=== PATIENT | female | born 1960 | race Caucasian/White ===

== ENCOUNTER 2018-04-24 13:45 | Outpatient (CLI) | payer BC | END 2018-04-24 13:46 | disposition home or self-care (01) | LOC: BICMAMMO 13:45 | PROVIDERS: ATTEND Internal Medicine | DX: Z12.31 Encounter for screening mammogram for malignant neoplasm of breast (principal) | CPT/HCPCS: 77063; 77067 ==

== ENCOUNTER 2020-05-22 20:55 | Inpatient (IN) | payer BC, OTHER ==
[2020-05-22 21:20] LABS: #Basophils 0.1 thou/uL (0.0-0.2); #Eosinphils 0.1 thou/uL (0.0-0.7); #Monocytes 0.4 thou/uL (0.11-0.59); #Neutrophils 5.8 thou/uL (1.40-6.50); %Basophils 0.7 % (0.0-1.0); %Eosinophils 0.8 % (0.0-10.0); %Lymphocytes 24.2 % (21.0-51.0); %Monocytes 5.2 % (0.0-10.0); %Neutrophils 69.1 % (42.0-75.0); Hemoglobin 14.2 g/dL (12.0-16.0); Mean Corpuscular HGB CONC 34.6 g/dL (32.0-36.0); Mean Corpuscular Hemoglobin 31.2 pg (27.0-31.0); Mean Corpuscular Volume 90.2 fL (78.0-98.0); Platelet Count 154 thou/uL (130-400); Red Blood Cell (RBC) Count 4.55 mill/uL (4.20-5.40); White Blood Cell (WBC) Count 8.4 thou/uL (4.8-10.8)
--- NOTE | 2020-05-22 21:33 | RAD ---
PORTABLE CHEST: 05/22/20 HISTORY: Shortness of breath. No comparison. FINDINGS: There are hazy bilateral infiltrates. No effusion. Heart size is normal. Vascular markings are promi nent. IMPRESSION: Hazy bilateral infiltrates. COVID pneumonia should be excluded. POS: [facility]
[2020-05-22 21:40] LABS: ALT (SGPT) 16 U/L (8-55); AST (SGOT) 31 U/L (5-34); Albumin 3.1 g/dL (3.5-5.0); Alkaline Phosphatase 116 U/L (40-110); Anion Gap 14 mmol/L (10-20); BUN (Urea Nitrogen) 10 mg/dL (9.8-20.1); Bilirubin, Total 2.3 mg/dL (0.2-1.2); Calc. Creatinine Clearance 0 mL/min (70-130); Calcium 8.6 mg/dL (7.8-10.44); Carbon Dioxide 22 mmol/L (22-29); Chloride 104 mmol/L (98-107); Estimated GFR-MDRD Greater than 90; Globulin 3.8 g/dL (2.4-3.5); Glucose 222 mg/dL (70-105); Potassium 3.8 mmol/L (3.5-5.1); Protein, Total 6.9 g/dL (6.0-8.3); Sodium 136 mmol/L (136-145)
[2020-05-23] MEDS ORDERED: Ondansetron ODT 4 MG TAB SL PRN (00:34)
[2020-05-23] MEDS ORDERED: Acetaminophen 325 MG TAB PO PRN (00:34)
[2020-05-23] MEDS ORDERED: Acetaminophen 650 MG Suppository PR PRN (00:56)
[2020-05-23] MEDS ORDERED: Calcium Carbonate 500 MG ChewTAB PO PRN (00:56)
--- NOTE | 2020-05-23 01:03 | PDOC.HHP ---
Hospitalist HPI - History of Present Illness weakness dyspnea History of Present Illness: Case of an 59y/o female with pmhx of DM who comes to hospital due to weakness and dyspnea. patient refers she was on her usual state of health until tuesday when she started to have symptoms of cough dypsnea, sore throat, anorexia, loss of taste and nausea. she refers she went to a clinic to get tested, results were pending. patient comes today due to worsening of her symptoms especially weakness and dyspnea. at arrival at the ED patient with o2 sat in the low 80s, with a positive results of covid 19 for which hospitalist was called for further evaluation and management. Hospitalist ROS - Review of Systems All other systems reviewed; all pertinent +/- noted in HPI/Subj Hospitalist History - Family History Family History: reports: diabetes mellitus - Social History Smoking Status: Never smoker Alcohol: reports: None Drugs: reports: none - Exam General Appearance: NAD, awake alert Eye: PERRL, anicteric sclera ENT: normocephalic atraumatic, no oropharyngeal lesions Neck: supple, symmetric, no JVD Heart: RRR, no murmur, no gallops, no rubs Respiratory: CTAB, no wheezes, no rales, no ronchi, tachypneic Gastrointestinal: soft, non-tender, non-distended Extremities: no cyanosis, no clubbing, no edema Skin: normal turgor, no lesions, no rashes Neurological: cranial nerve grossly intact, normal sensation to touch, no weakness Musculoskeletal: normal tone, normal strength, no muscle wasting Psychiatric: normal affect, normal behavior, A&O x 3 Hospitalist Results - Labs Result Diagrams: 05/22/20 21:10 05/22/20 21:10 Lab results: WBC 8.4 thou/uL (4.8-10.8) 05/22/20 21:10 Hgb 14.2 g/dL (12.0-16.0) 05/22/20 21:10 Hct 41.0 % (36.0-47.0) 05/22/20 21:10 MCV 90.2 fL (78.0-98.0) 05/22/20 21:10 Plt Count 154 thou/uL (130-400) 05/22/20 21:10 Neutrophils % 69.1 % (42.0-75.0) 05/22/20 21:10 Sodium 136 mmol/L (136-145) 05/22/20 21:10 Potassium 3.8 mmol/L (3.5-5.1) 05/22/20 21:10 Chloride 104 mmol/L (98-107) 05/22/20 21:10 Carbon Dioxide 22 mmol/L (22-29) 05/22/20 21:10 BUN 10 mg/dL (9.8-20.1) 05/22/20 21:10 Creatinine 0.61 mg/dL (0.6-1.1) 05/22/20 21:10 Glucose 222 mg/dL (70-105) H 05/22/20 21:10 Lactic Acid 1.3 mmol/L (0.5-2.2) 05/22/20 21:56 Calcium 8.6 mg/dL (7.8-10.44) 05/22/20 21:10 Total Bilirubin 2.3 mg/dL (0.2-1.2) H 05/22/20 21:10 AST 31 U/L (5-34) 05/22/20 21:10 ALT 16 U/L (8-55) 05/22/20 21:10 Alkaline Phosphatase 116 U/L (40-110) H 05/22/20 21:10 Serum Total Protein 6.9 g/dL (6.0-8.3) 05/22/20 21:10 Albumin 3.1 g/dL (3.5-5.0) L 05/22/20 21:10 - Radiology Interpretation Chest x-ray Additional Comment: b/l infiltrates Hospitalist H&P A/P - Problem (1) Pneumonia due to COVID-19 virus Code(s): U07.1 - COVID-19; J12.89 - OTHER VIRAL PNEUMONIA Status: Acute (2) Respiratory failure with hypoxia Code(s): J96.91 - RESPIRATORY FAILURE, UNSPECIFIED WITH HYPOXIA Status: Acute (3) Diabetes Code(s): E11.9 - TYPE 2 DIABETES MELLITUS WITHOUT COMPLICATIONS Status: Acute - Plan Plan: covid pneumonia / respiratory failire hypoxic - positve test - cxr w b/l infiltrates - started on rocephin and azithromycin prophylactically - started on dexamethazone 6mg iv d due to hypoxia - f/u cultures - f/u inflammation markers - o2 supplementation - dvt prophylaxis - LA 1.3 DM - acc and ss - low dose long acting -adjust as necessary
[2020-05-23] MEDS: Sodium Chloride 0.9% 1,000 ML IV SCH ×2 (01:31→21:20)
[2020-05-23] MEDS: Azithromycin 500 MG in Sodium Chloride 0.9% 250 ML 250 ML IVPB SCH (01:31)
[2020-05-23] MEDS: cefTRIAXone\\ROCEPHIN 1 GM in Sodium Chloride 0.9% 100 ML IVPB SCH (01:32)
[2020-05-23] MEDS: Ondansetron PF 4 MG/2 ML Vial IVP PRN ×2 (01:32→10:03)
[2020-05-23] MEDS: Acetaminophen 325 MG TAB PO PRN ×3 (01:33→17:51)
[2020-05-23] MEDS: Guaifenesin DM 100-10/5 ML UDCUP PO PRN (01:33)
[2020-05-23 01:54] VITALS: BMI 32.7
[2020-05-23] MEDS ORDERED: Dextrose 50% Abboject 50 ML SYRINGE SLOW IVP PRN (02:48)
[2020-05-23] MEDS ORDERED: Dextrose 5% in Water 1,000 ML IV PRN (02:48)
[2020-05-23] MEDS: HumaLOG 300 UNITS/3 ML VIAL SC PRN ×4 (05:31→20:40)
[2020-05-23 07:19] LABS: ALT (SGPT) 14 U/L (8-55); AST (SGOT) 25 U/L (5-34); Albumin 2.8 g/dL (3.5-5.0); Alkaline Phosphatase 97 U/L (40-110); Anion Gap 11 mmol/L (10-20); BUN (Urea Nitrogen) 13 mg/dL (9.8-20.1); Bilirubin, Total 1.6 mg/dL (0.2-1.2); CRP (Inflammatory) 18.03 mg/dL (= or < 0.5); Calc. Creatinine Clearance 120 mL/min (70-130); Calcium 8.1 mg/dL (7.8-10.44); Carbon Dioxide 24 mmol/L (22-29); Chloride 105 mmol/L (98-107); Estimated GFR-MDRD Greater than 90; Globulin 3.5 g/dL (2.4-3.5); Glucose 218 mg/dL (70-105); Potassium 3.8 mmol/L (3.5-5.1); Protein, Total 6.3 g/dL (6.0-8.3); Sodium 136 mmol/L (136-145)
[2020-05-23 07:44] LABS: Band 10 % (5-11); Eosinophils 1 % (0-10); Helmet Cells SLIGHT = 2-5 cells (100X) (0-1/hpf); Hemoglobin 12.3 g/dL (12.0-16.0); Lymphocytes 18 % (21-51); MDiff Complete? YES; Mean Corpuscular HGB CONC 33.8 g/dL (32.0-36.0); Mean Corpuscular Hemoglobin 30.1 pg (27.0-31.0); Mean Platelet Volume 11.4 fL (7.4-10.4); Monocytes 4 % (0-10); Neutrophil 67 % (42-75); Platelet Count 166 thou/uL (130-400); Platelet Morphology Comment Appears Adequate; RBC Distribution Width 12.2 % (11.5-14.5); RBC Morphology Normal; Red Blood Cell (RBC) Count 4.07 mill/uL (4.20-5.40); White Blood Cell (WBC) Count 8.4 thou/uL (4.8-10.8)
[2020-05-23] MEDS: Enoxaparin Sodium 40 MG/0.4 ML SYRINGE SC SCH (08:09)
[2020-05-23] MEDS: Dexamethasone 10 MG/ML VIAL SLOW IVP SCH (08:09)
[2020-05-23] MEDS: Insulin Glargine 10 UNITS in Pre-Filled Syringe 1 EACH SC SCH (20:31)
[2020-05-24] MEDS: Azithromycin 500 MG in Sodium Chloride 0.9% 250 ML 250 ML IVPB SCH (01:09)
[2020-05-24] MEDS: HYDROcodone/Acetaminophen 5/325 mg Tablet PO PRN (01:09)
[2020-05-24] MEDS: cefTRIAXone\\ROCEPHIN 1 GM in Sodium Chloride 0.9% 100 ML IVPB SCH (01:09)
[2020-05-24] MEDS: Ondansetron PF 4 MG/2 ML Vial IVP PRN ×2 (04:22→08:31)
[2020-05-24] MEDS: HumaLOG 300 UNITS/3 ML VIAL SC PRN ×3 (05:40→17:12)
[2020-05-24] MEDS: Guaifenesin DM 100-10/5 ML UDCUP PO PRN (08:27)
[2020-05-24] MEDS: Dexamethasone 10 MG/ML VIAL SLOW IVP SCH (08:28)
[2020-05-24] MEDS: Enoxaparin Sodium 40 MG/0.4 ML SYRINGE SC SCH ×2 (08:28→21:04)
[2020-05-24] MEDS: Acetaminophen 325 MG TAB PO PRN (09:02)
[2020-05-24 11:13] LABS: Actual Bicarbonate (HCO3a) 21.4 mEq/L (22-28); Base Excess (BEa) -2.2 mEq/L (-2.0 to +3.0); CO2 Tension 34.4 mmHg (35.0-45.0); Calcium, Ionized (arterial) 1.19 mmol/L (1.12-1.30); Carboxyhemoglobin (COHb) 0.8 gm% (0.0-3.0); pH, Arterial 7.41 (7.35-7.45)
[2020-05-24 11:16] LABS: O2 Tension (PaO2), arterial 54.6 mmHg (80.0-100.0)
[2020-05-24 11:17] LABS: Hemoglobin (Hb) 20.5 g/dL (12.0-16.0); Puncture Site RRA
--- NOTE | 2020-05-24 15:52 | PDOC.HOSPP ---
- Subjective Encounter Date: 05/24/20 Encounter Time: 12:30 Subjective: pt up in bed feels nauseated - Objective Vital Signs & Weight: Vital Signs (12 hours) Temp Pulse Resp BP Pulse Ox 05/24/20 11:30 98.3 F 71 20 169/74 H 93 L 05/24/20 09:05 91 L 05/24/20 09:04 97.8 F 73 20 168/77 H 91 L 05/24/20 05:37 93 L Weight Admit Weight 167 lb 9 oz Weight 167 lb 9 oz I&O: 05/23/20 05/24/20 05/25/20 06:59 06:59 06:59 Intake Total 690 Balance 690 Result Diagrams: 05/23/20 06:26 05/23/20 06:26 Additional Labs: Accuchecks 05/24/20 05/23/20 05/23/20 11:17 20:42 17:32 POC Glucose 287 H 323 H 299 H 05/23/20 12:37 POC Glucose 294 H Hospitalist ROS - Review of Systems Respiratory: denies: cough, dry, shortness of breath, hemoptysis, SOB with excertion, pleuritic pain, sputum, wheezing, other Cardiovascular: denies: chest pain, palpitations, orthopnea, paroxysmal noc. dyspnea, edema, light headedness, other Gastrointestinal: denies: nausea, vomiting, abdominal pain, diarrhea, constipation, melena, hematochezia, other - Medication Medications: Active Medications Generic Name Dose Route Start Last Admin Trade Name Freq PRN Reason Stop Dose Admin Acetaminophen 650 mg 05/23/20 00:56 05/24/20 09:02 Tylenol PO 650 mg Q4H PRN Administration Headache/Fever/Mild Pain (1-3) Hydrocodone Bitart/Acetaminophen 1 tab 05/23/20 00:56 05/24/20 01:09 [place] 5/325 PO 1 tab Q4H PRN Administration Moderate Pain (4-6) Dexamethasone 6 mg 05/23/20 09:00 05/24/20 08:28 Decadron SLOW IVP 6 mg DAILY ROMELIA Administration Guaifenesin/Dextromethorphan 15 ml 05/23/20 00:56 05/24/20 08:27 Robitussin Dm PO 15 ml Q4H PRN Administration Cough Azithromycin 500 mg/ Sodium 250 mls @ 250 mls/hr 05/23/20 02:00 05/24/20 01: 09 Chloride IVPB 250 mls 0200 ROMELIA Administration Insulin Glargine 10 units/ 0.1 mls @ 0 mls/hr 05/23/20 21:00 05/23/20 20:31 Miscellaneous Medication SC 0.1 mls HS ROMELIA Administration Insulin Human Lispro 0 units 05/23/20 02:48 05/24/20 11:29 Humalog SC 4 unit .MILD SLIDING SCALE PRN Administration Mild Correctional Scale Ondansetron HCl 4 mg 05/24/20 03:54 05/24/20 08:31 Zofran IVP 4 mg Q6H PRN Administration Nausea/Vomiting - Exam Neck: negative: supple, symmetric, no JVD, no thyromegaly, no lymphadenopathy, no carotid bruit, JVD Heart: negative: RRR, no murmur, no gallops, no rubs, normal peripheral pulses, irregular, diminshed peripheral pulses, murmur present, II/IV, III/IV Respiratory: negative: CTAB, no wheezes, no rales, no ronchi, normal chest expansion, no tachypnea, normal percussion, rales, rhonchi, tachypneic, wheezes Gastrointestinal: negative: soft, non-tender, non-distended, normal bowel sounds , no palpable masses, no hepatomegaly, no splenomegaly, no bruit, no guarding, no rigidity, tender to palpation, distended, diminished bowl sounds, voluntary guarding Hosp A/P (1) Respiratory failure with hypoxia Code(s): J96.91 - RESPIRATORY FAILURE, UNSPECIFIED WITH HYPOXIA Status: Acute Qualifiers: Chronicity: acute Qualified Code(s): J96.01 - Acute respiratory failure with hypoxia (2) Obesity (BMI 30.0-34.9) Code(s): E66.9 - OBESITY, UNSPECIFIED Status: Acute (3) Diabetes Code(s): E11.9 - TYPE 2 DIABETES MELLITUS WITHOUT COMPLICATIONS Status: Acute (4) Pneumonia due to COVID-19 virus Code(s): U07.1 - COVID-19; J12.89 - OTHER VIRAL PNEUMONIA Status: Acute - Plan will continue steroids/abx for now. will check crp/ferritin. will increase her insulin. pt's abg indicated hypoxemia will increase oxygen to 4L to keep sat >95 %.
[2020-05-24] MEDS ORDERED: Dextrose 5% in Water 1,000 ML IV PRN (16:18)
[2020-05-24] MEDS ORDERED: Dextrose 50% Abboject 50 ML SYRINGE SLOW IVP PRN (16:18)
[2020-05-24] MEDS: Insulin Glargine 10 UNITS in Pre-Filled Syringe 1 EACH SC SCH (21:04)
[2020-05-25] MEDS: Azithromycin 500 MG in Sodium Chloride 0.9% 250 ML 250 ML IVPB SCH (01:30)
[2020-05-25 06:40] LABS: ALT (SGPT) 18 U/L (8-55); AST (SGOT) 27 U/L (5-34); Albumin 2.7 g/dL (3.5-5.0); Alkaline Phosphatase 92 U/L (40-110); Anion Gap 9 mmol/L (10-20); BUN (Urea Nitrogen) 17 mg/dL (9.8-20.1); Bilirubin, Total 1.4 mg/dL (0.2-1.2); CRP (Inflammatory) 6.59 mg/dL (= or < 0.5); Calc. Creatinine Clearance 115 mL/min (70-130); Calcium 8.6 mg/dL (7.8-10.44); Carbon Dioxide 27 mmol/L (22-29); Chloride 104 mmol/L (98-107); Estimated GFR-MDRD Greater than 90; Globulin 3.4 g/dL (2.4-3.5); Glucose 175 mg/dL (70-105); Protein, Total 6.1 g/dL (6.0-8.3); Sodium 136 mmol/L (136-145)
[2020-05-25 06:43] LABS: #Eosinphils 0.1 thou/uL (0.0-0.7); #Lymphocytes 2.4 thou/uL (1.20-3.40); #Neutrophils 8.5 thou/uL (1.40-6.50); %Basophils 0.1 % (0.0-1.0); %Eosinophils 0.7 % (0.0-10.0); %Lymphocytes 19.8 % (21.0-51.0); %Monocytes 8.1 % (0.0-10.0); %Neutrophils 71.3 % (42.0-75.0); Hemoglobin 11.4 g/dL (12.0-16.0); Mean Corpuscular HGB CONC 34.3 g/dL (32.0-36.0); Mean Corpuscular Hemoglobin 30.3 pg (27.0-31.0); Mean Corpuscular Volume 88.3 fL (78.0-98.0); Mean Platelet Volume 11.4 fL (7.4-10.4); Platelet Count 234 thou/uL (130-400); RBC Distribution Width 12.1 % (11.5-14.5); Red Blood Cell (RBC) Count 3.75 mill/uL (4.20-5.40); White Blood Cell (WBC) Count 11.9 thou/uL (4.8-10.8)
[2020-05-25] MEDS: Enoxaparin Sodium 40 MG/0.4 ML SYRINGE SC SCH ×2 (08:47→20:16)
[2020-05-25] MEDS: Zinc Sulfate 220 MG CAP PO SCH (08:47)
[2020-05-25] MEDS: Ascorbic Acid 500 mg Chewable Tablet PO SCH (08:47)
[2020-05-25] MEDS: Dexamethasone 10 MG/ML VIAL SLOW IVP SCH (08:48)
[2020-05-25] MEDS ORDERED: Insulin Glargine 10 UNITS in Pre-Filled Syringe 1 EACH SC SCH (09:00)
[2020-05-25] MEDS: Insulin Glargine 16 UNITS in Pre-Filled Syringe 1 EACH SC SCH (11:52)
[2020-05-25] MEDS: HumaLOG 300 UNITS/3 ML VIAL SC PRN ×3 (12:07→20:37)
--- NOTE | 2020-05-25 18:05 | PDOC.HOSPP ---
- Subjective Encounter Date: 05/25/20 Encounter Time: 14:00 Subjective: The patient states she is feeling better. She continues to have a productive cough of white phlegm. No chest pain. She does feel SOB on exertion still - Objective Vital Signs & Weight: Vital Signs (12 hours) Temp Pulse Resp BP Pulse Ox 05/25/20 16:19 97.8 F 60 20 162/83 H 95 05/25/20 12:00 98.6 F 74 20 167/75 H 95 05/25/20 09:10 94 L 05/25/20 09:09 98.2 F 71 20 157/76 H 94 L Weight Admit Weight 167 lb 9 oz Weight 167 lb 9 oz I&O: 05/24/20 05/25/20 05/26/20 06:59 06:59 06:59 Intake Total 960 Balance 960 Result Diagrams: 05/25/20 05:46 05/25/20 05:46 Additional Labs: Accuchecks 05/25/20 05/25/20 05/24/20 12:03 04:23 21:13 POC Glucose 249 H 184 H 292 H 05/24/20 05/24/20 16:29 05:40 POC Glucose 295 H 245 H Hospitalist ROS - Review of Systems Constitutional: denies: fever, chills - Medication Medications: Active Medications Generic Name Dose Route Start Last Admin Trade Name Freq PRN Reason Stop Dose Admin Acetaminophen 650 mg 05/23/20 00:56 05/24/20 09:02 Tylenol PO 650 mg Q4H PRN Administration Headache/Fever/Mild Pain (1-3) Hydrocodone Bitart/Acetaminophen 1 tab 05/23/20 00:56 05/24/20 01:09 [place] 5/325 PO 1 tab Q4H PRN Administration Moderate Pain (4-6) Ascorbic Acid 1,000 mg 05/25/20 09:00 05/25/20 08:47 Vitamin C PO 1,000 mg DAILY ROMELIA Administration Dexamethasone 6 mg 05/23/20 09:00 05/25/20 08:48 Decadron SLOW IVP 6 mg DAILY ROMELIA Administration Enoxaparin Sodium 40 mg 05/24/20 21:00 05/25/20 08:47 Lovenox SC 40 mg BID ROMELIA Administration Glipizide 10 mg 05/25/20 09:00 05/25/20 11:52 Glucotrol Xl PO Not Given DAILY ROMELIA Guaifenesin/Dextromethorphan 15 ml 05/23/20 00:56 05/24/20 08:27 Robitussin Dm PO 15 ml Q4H PRN Administration Cough Azithromycin 500 mg/ Sodium 250 mls @ 250 mls/hr 05/23/20 02:00 05/25/20 01: 30 Chloride IVPB 250 mls 0200 ROMELIA Administration Insulin Glargine 10 units/ 0.1 mls @ 0 mls/hr 05/23/20 21:00 05/24/20 21:04 Miscellaneous Medication SC 0.1 mls HS ROMELIA Administration Insulin Glargine 16 units/ 0.16 mls @ 0 mls/hr 05/25/20 09:00 05/25/20 11:52 Miscellaneous Medication SC 0.16 mls QAM ROMELIA Administration Insulin Human Lispro 0 units 05/24/20 16:18 05/25/20 17:29 Humalog SC 13 unit .AGGRESSIVE SLIDING PRN Administration Aggressive Correctional Scale Ondansetron HCl 4 mg 05/24/20 03:54 05/24/20 08:31 Zofran IVP 4 mg Q6H PRN Administration Nausea/Vomiting Zinc Sulfate 220 mg 05/25/20 09:00 05/25/20 08:47 Zinc Sulfate PO 220 mg DAILY ROMELIA Administration - Exam General Appearance: NAD, awake alert Eye: PERRL, anicteric sclera ENT: normocephalic atraumatic, no oropharyngeal lesions Neck: no JVD Heart: RRR, no murmur, no gallops, no rubs, normal peripheral pulses Respiratory: CTAB, no wheezes, no rales, no ronchi Gastrointestinal: soft, non-tender, non-distended, normal bowel sounds Extremities: no cyanosis, no clubbing, no edema Hosp A/P - Plan Chest Xray: hazy bilateral infiltrates This is a 59 year old female who presented with COVID pneumonia Acute hypoxic respiratory failure secondary to COVID pneumonia - currently still on 4L nasal cannula. Will repeat blood gas to evaluate for improvement in hypoxemia. - continue azithromycin - continue dexamethasone Diabetes - increase lantus to 16 units qam, 10 units qhs - continue glipizide Dispo: pending wean off oxygen DVT prophylaxis: Code status: full code
[2020-05-25] MEDS ORDERED: Polyethylene Glycol 3350 17 GM Packet PO PRN (19:09)
[2020-05-25 19:35] LABS: Actual Bicarbonate (HCO3a) 23.3 mEq/L (22-28); Base Excess (BEa) -0.2 mEq/L (-2.0 to +3.0); CO2 Tension 34.2 mmHg (35.0-45.0); Calcium, Ionized (arterial) 1.16 mmol/L (1.12-1.30); Carboxyhemoglobin (COHb) 0.4 gm% (0.0-3.0); Hemoglobin (Hb) 11.6 g/dL (12.0-16.0); O2 Tension (PaO2), arterial 93.5 mmHg (80.0-100.0); Potassium - ABG Lab 4.22 mmol/L (3.70-5.30); pH, Arterial 7.45 (7.35-7.45)
[2020-05-25] MEDS: Insulin Glargine 10 UNITS in Pre-Filled Syringe 1 EACH SC SCH (20:16)
[2020-05-25 20:23] LABS: Puncture Site L BRACHIAL
[2020-05-26] MEDS: Azithromycin 500 MG in Sodium Chloride 0.9% 250 ML 250 ML IVPB SCH (01:01)
[2020-05-26] MEDS: Dexamethasone 10 MG/ML VIAL SLOW IVP SCH (08:32)
[2020-05-26] MEDS: Insulin Glargine 16 UNITS in Pre-Filled Syringe 1 EACH SC SCH (08:33)
[2020-05-26] MEDS: Ascorbic Acid 500 mg Chewable Tablet PO SCH (08:33)
[2020-05-26] MEDS: Zinc Sulfate 220 MG CAP PO SCH (08:33)
[2020-05-26] MEDS: Enoxaparin Sodium 40 MG/0.4 ML SYRINGE SC SCH ×2 (08:33→20:34)
[2020-05-26] MEDS: Acetaminophen 325 MG TAB PO PRN ×2 (08:47→17:32)
[2020-05-26] MEDS: Ondansetron PF 4 MG/2 ML Vial IVP PRN ×2 (08:47→17:33)
[2020-05-26 09:25] LABS: Hemoglobin 12.2 g/dL (12.0-16.0); Mean Corpuscular HGB CONC 35.5 g/dL (32.0-36.0); Mean Corpuscular Hemoglobin 31.2 pg (27.0-31.0); Mean Corpuscular Volume 87.8 fL (78.0-98.0); Mean Platelet Volume 10.3 fL (7.4-10.4); Platelet Count 272 thou/uL (130-400); RBC Distribution Width 12.2 % (11.5-14.5); Red Blood Cell (RBC) Count 3.92 mill/uL (4.20-5.40); White Blood Cell (WBC) Count 15.5 thou/uL (4.8-10.8)
[2020-05-26 09:43] LABS: Anion Gap 13 mmol/L (10-20); BUN (Urea Nitrogen) 16 mg/dL (9.8-20.1); Calc. Creatinine Clearance 116 mL/min (70-130); Calcium 8.6 mg/dL (7.8-10.44); Carbon Dioxide 24 mmol/L (22-29); Chloride 104 mmol/L (98-107); Estimated GFR-MDRD Greater than 90; Glucose 104 mg/dL (70-105); Potassium 3.8 mmol/L (3.5-5.1); Sodium 137 mmol/L (136-145)
[2020-05-26] MEDS: HYDROcodone/Acetaminophen 5/325 mg Tablet PO PRN ×2 (09:58→20:37)
[2020-05-26] MEDS: HumaLOG 300 UNITS/3 ML VIAL SC PRN (11:50)
--- NOTE | 2020-05-26 12:14 | RAD ---
CHEST 1 VIEW: Date: 05/26/2020 COMPARISON: 05/22/2020. HISTORY: COVID-positive patient. Evaluate for improvement. FINDINGS: Stable multifocal interstitial and alveolar opacities, compatible with patient's history of COVID. IMPRESSION: No significant change. POS: [facility]
[2020-05-26] MEDS ORDERED: Ketorolac Tromethamine 30 MG/ML VIAL IVP SCH (12:45)
[2020-05-26] MEDS: Lidocaine 5% Patch TD SCH (14:08)
--- NOTE | 2020-05-26 19:09 | PDOC.HOSPP ---
- Subjective Encounter Date: 05/26/20 Encounter Time: 09:00 Subjective: The patient states she is doing a little bit better. She had a bowel movement today. She is still fatigued. She reports some pain in her back on the left side and is requesting pain medication - Objective Vital Signs & Weight: Vital Signs (12 hours) Temp Pulse Resp BP Pulse Ox 05/26/20 15:16 93 L 05/26/20 11:58 94 L 05/26/20 08:00 98 F 70 18 138/80 93 L Weight Admit Weight 167 lb 9 oz Weight 167 lb 9 oz I&O: 05/25/20 05/26/20 05/27/20 06:59 06:59 06:59 Intake Total 960 1640 Output Total 800 Balance 960 840 Result Diagrams: 05/26/20 09:14 05/26/20 09:14 Additional Labs: Accuchecks 05/26/20 05/26/20 05/25/20 11:16 04:31 20:26 POC Glucose 300 H 141 H 312 H 05/25/20 17:21 POC Glucose 377 H Hospitalist ROS - Medication Medications: Active Medications Generic Name Dose Route Start Last Admin Trade Name Freq PRN Reason Stop Dose Admin Acetaminophen 650 mg 05/23/20 00:56 05/26/20 17:32 Tylenol PO 650 mg Q4H PRN Administration Headache/Fever/Mild Pain (1-3) Hydrocodone Bitart/Acetaminophen 1 tab 05/23/20 00:56 05/26/20 09:58 [place] 5/325 PO 1 tab Q4H PRN Administration Moderate Pain (4-6) Ascorbic Acid 1,000 mg 05/25/20 09:00 05/26/20 08:33 Vitamin C PO 1,000 mg DAILY ROMELIA Administration Dexamethasone 6 mg 05/23/20 09:00 05/26/20 08:32 Decadron SLOW IVP 6 mg DAILY ROMELIA Administration Enoxaparin Sodium 40 mg 05/24/20 21:00 05/26/20 08:33 Lovenox SC 40 mg BID ROMELIA Administration Glipizide 10 mg 05/25/20 09:00 05/26/20 08:32 Glucotrol Xl PO 10 mg DAILY ROMELIA Administration Guaifenesin/Dextromethorphan 15 ml 05/23/20 00:56 05/24/20 08:27 Robitussin Dm PO 15 ml Q4H PRN Administration Cough Insulin Glargine 10 units/ 0.1 mls @ 0 mls/hr 05/23/20 21:00 05/25/20 20:16 Miscellaneous Medication SC 0.1 mls HS ROMELIA Administration Insulin Glargine 16 units/ 0.16 mls @ 0 mls/hr 05/25/20 09:00 05/26/20 08:33 Miscellaneous Medication SC 0.16 mls QAM ROMELIA Administration Insulin Human Lispro 0 units 05/24/20 16:18 05/26/20 11:50 Humalog SC 9 unit .AGGRESSIVE SLIDING PRN Administration Aggressive Correctional Scale Lidocaine 1 patch 05/26/20 13:00 05/26/20 14:08 Lidoderm 5% Patch TD 1 patch 1300 ROMELIA Administration Ondansetron HCl 4 mg 05/24/20 03:54 05/26/20 17:33 Zofran IVP 4 mg Q6H PRN Administration Nausea/Vomiting Zinc Sulfate 220 mg 05/25/20 09:00 05/26/20 08:33 Zinc Sulfate PO 220 mg DAILY ROMELIA Administration - Exam General Appearance: NAD, awake alert Eye: PERRL, anicteric sclera ENT: normocephalic atraumatic, no oropharyngeal lesions Neck: no JVD Heart: RRR, no murmur, no gallops, no rubs Respiratory: CTAB, no wheezes, no ronchi Respiratory - other findings: some diminished breath sounds at the bases Gastrointestinal: soft, non-tender, non-distended, normal bowel sounds Extremities: no cyanosis, no clubbing, no edema Skin: normal turgor, no lesions, no rashes Neurological: cranial nerve grossly intact, normal sensation to touch, no focal deficits, no new deficit Hosp A/P - Plan Chest Xray: hazy bilateral infiltrates This is a 59 year old female who presented with COVID pneumonia Acute hypoxic respiratory failure secondary to COVID pneumonia - currently still on 4L nasal cannula. ABG shows improvement in hypoxemia - will attempt to wean oxygen saturation again to 92%, currently on 2-3L - continue azithromycin. Will add ceftriaxone - continue dexamethasone Leukocytosis - WBC up to 15.5, possibly from steroids. Add ceftriaxone - will monitor for fevers Diabetes - increase lantus to 16 units qam, 10 units qhs - continue glipizide Dispo: pending wean off oxygen DVT prophylaxis: Code status: full code
[2020-05-26] MEDS ORDERED: cefTRIAXone Sodium 1,000 MG in Syringe 0 ML IVPB SCH (19:15)
[2020-05-26] MEDS ORDERED: cefTRIAXone\\ROCEPHIN 1 GM in Sodium Chloride 0.9% 100 ML IVPB SCH (20:00)
[2020-05-26] MEDS: Insulin Glargine 10 UNITS in Pre-Filled Syringe 1 EACH SC SCH (20:35)
[2020-05-26] MEDS ORDERED: Azithromycin 500 MG in Sodium Chloride 0.9% 250 ML 250 ML IVPB SCH (21:00)
[2020-05-27] MEDS ORDERED: Lidocaine Patch Removal 1 EACH TOP SCH (01:00)
[2020-05-27] MEDS: Ondansetron PF 4 MG/2 ML Vial IVP PRN (01:14)
[2020-05-27] MEDS: Acetaminophen 325 MG TAB PO PRN (04:50)
[2020-05-27 06:20] LABS: #Basophils 0.1 thou/uL (0.0-0.2); #Eosinphils 0.1 thou/uL (0.0-0.7); #Lymphocytes 3.9 thou/uL (1.20-3.40); #Monocytes 0.8 thou/uL (0.11-0.59); %Basophils 1.2 % (0.0-1.0); %Eosinophils 0.6 % (0.0-10.0); %Lymphocytes 32.4 % (21.0-51.0); %Neutrophils 58.9 % (42.0-75.0); Hemoglobin 10.1 g/dL (12.0-16.0); Mean Corpuscular HGB CONC 35.1 g/dL (32.0-36.0); Mean Corpuscular Hemoglobin 30.6 pg (27.0-31.0); Mean Corpuscular Volume 87.3 fL (78.0-98.0); Mean Platelet Volume 10.5 fL (7.4-10.4); Platelet Count 246 thou/uL (130-400); RBC Distribution Width 12.3 % (11.5-14.5); Red Blood Cell (RBC) Count 3.29 mill/uL (4.20-5.40); White Blood Cell (WBC) Count 11.9 thou/uL (4.8-10.8)
[2020-05-27 06:35] LABS: ALT (SGPT) 21 U/L (8-55); AST (SGOT) 24 U/L (5-34); Albumin 2.7 g/dL (3.5-5.0); Alkaline Phosphatase 83 U/L (40-110); Anion Gap 10 mmol/L (10-20); BUN (Urea Nitrogen) 13 mg/dL (9.8-20.1); Bilirubin, Total 1.1 mg/dL (0.2-1.2); CRP (Inflammatory) 2.84 mg/dL (= or < 0.5); Calc. Creatinine Clearance 120 mL/min (70-130); Calcium 8.2 mg/dL (7.8-10.44); Carbon Dioxide 27 mmol/L (22-29); Chloride 104 mmol/L (98-107); Estimated GFR-MDRD Greater than 90; Globulin 2.9 g/dL (2.4-3.5); Glucose 74 mg/dL (70-105); Potassium 3.6 mmol/L (3.5-5.1); Protein, Total 5.6 g/dL (6.0-8.3); Sodium 137 mmol/L (136-145)
[2020-05-27] MEDS: Ascorbic Acid 500 mg Chewable Tablet PO SCH (08:14)
[2020-05-27] MEDS: Dexamethasone 10 MG/ML VIAL SLOW IVP SCH (08:15)
[2020-05-27] MEDS: Zinc Sulfate 220 MG CAP PO SCH (08:15)
[2020-05-27] MEDS: Enoxaparin Sodium 40 MG/0.4 ML SYRINGE SC SCH (08:15)
[2020-05-27] MEDS: HYDROcodone/Acetaminophen 5/325 mg Tablet PO PRN ×2 (08:35→14:49)
[2020-05-27] MEDS ORDERED: Insulin Glargine 18 UNITS in Pre-Filled Syringe 1 EACH SC SCH (09:00)
[2020-05-27 10:01] VITALS: BP 113/65; TEMP 97.4
[2020-05-27] MEDS: HumaLOG 300 UNITS/3 ML VIAL SC PRN ×2 (11:30→17:15)
[2020-05-27] MEDS: Lidocaine 5% Patch TD SCH (13:15)
--- NOTE | 2020-05-27 15:58 | DIS ---
DATE OF ADMISSION: 05/22/2020 DATE OF DISCHARGE: 05/26/2020 DISCHARGE DIAGNOSES: 1. Acute hypoxic respiratory failure secondary to COVID-19 pneumonia. 2. Leukocytosis. 3. Type 2 diabetes. 4. Anemia. 5. Back pain CONSULTATIONS: None. PROCEDURES: None. BRIEF HISTORY OF PRESENT ILLNESS: This is a 59-year-old female with past medical history of type 2 diabetes, who presented to the emergency room with cough, shortness of breath, loss of taste, nausea, and weakness. The patient went to a clinic, was found to be COVID-19 positive. Her O2 saturations were in the low 80s. Her chest x-ray showed bilateral infiltrates. She was admitted to the hospital for further workup. HOSPITAL COURSE: 1. Acute hypoxic respiratory failure secondary to COVID-19 pneumonia: The patient was initially receiving ceftriaxone and azithromycin from the 05/23 - 05/24. Thereafter, ceftriaxone was discontinued and the patient was only on azithromycin. The patient received dexamethasone for 5 days. The patient was requiring up to 4 L nasal cannula while in the hospital. Due to increasing leukocytosis on 05/26 with WBC 15.5, ceftriaxone was restarted. The following day, her white count came down to 11.9. The patient had a home oxygen evaluation done on the day of discharge and her O2 saturation was 96% on room air at rest and 90% on exertion. She will be discharged with cefdinir for additional 6 days and will receive one more day of azithromycin to complete a 5-day course of Z-Richard. She should get a repeat chest x-ray in 6 weeks. She should have a repeat CBC in a week to ensure resolution of her leukocytosis, which may be secondary to steroids. 2. Back pain: The patient reports some back pain in the left lower lumbar paraspinal area. The patient is able to lift up both her legs without significant pain. She did not have any urinary incontinence. So, spinal imaging was not done. She was discharged with the lidocaine patch. 3. Anemia: The patient was noted to have a hemoglobin of 10.1/28.7. There were no signs of bleeding. Consider further workup as an outpatient. DISCHARGE PHYSICAL EXAMINATION: VITAL SIGNS: Temperature 97.4, heart rate 90, respiratory rate 20, O2 saturation 95% on room air, and blood pressure 113/65. GENERAL: The patient is alert, awake, and oriented x3. CVS: Regular rate and rhythm with no murmurs, rubs, or gallops. LUNGS: Clear to auscultation bilaterally. ABDOMEN: Positive bowel sounds. Soft, nontender, and nondistended. EXTREMITIES: No edema. PERTINENT LABORATORY DATA: CBC on 05/27: White count 11.9, hemoglobin 10.1, hematocrit 28.7, and platelet count 246. BMP on 05/27: Normal. LFTs on 05/27: Normal. Procalcitonin: 0.13. ABG on 05/25: PH of 7.45, pO2 of 93.5, O2 saturation 97.1 on 05/25. COVID PCR on 05/22: Positive. IMAGING DATA: Chest x-ray on 05/22: Shows hazy bilateral infiltrates. Chest x-ray on 05/26: Shows stable multifocal interstitial and alveolar opacities. DISCHARGE CONDITION: Stable. ACTIVITY: As tolerated. DIET: Heart healthy diet. DISCHARGE MEDICATIONS: 1. Cefdinir 300 mg p.o. b.i.d. for 6 days. 2. Azithromycin 250 mg p.o. daily for one day. 3. Lidocaine patch. 4. Glipizide 10 mg p.o. daily. DISCHARGE INSTRUCTIONS: The patient to follow up with her PCP in a week and consider repeat CBC to further evaluate leukocytosis and anemia. She should get a repeat chest x-ray in 6 weeks. Job ID: [id number] MTDD
== END 2020-05-27 20:54 | disposition home or self-care (01) | DRG 177 ==
LOC: ERS 20:55 → T4-A 23:17
PROVIDERS: ADMIT Internal Medicine; ATTEND Internal Medicine
PROC: 8E0ZXY6 Isolation (ICD-10-PCS; principal; 2020-05-22)
DX: U07.1 COVID-19 (principal); J12.89 Other viral pneumonia; J96.01 Acute respiratory failure with hypoxia; E11.9 Type 2 diabetes mellitus without complications; D64.9 Anemia, unspecified; M54.9 Dorsalgia, unspecified; G89.29 Other chronic pain; E66.9 Obesity, unspecified; T38.0X5A Adverse effect of glucocorticoids and synthetic analogues, initial encounter; D72.829 Elevated white blood cell count, unspecified; Z79.84 Long term (current) use of oral hypoglycemic drugs; Z68.32 Body mass index [BMI] 32.0-32.9, adult
CPT/HCPCS: 36415; 36416; 71045; 80048; 80053; 82805; 83605; 84145; 85007; 85025; 85027; 85379; 86140; 87040; J0456; J0696; J1100; J1650; J1815; J1885; J2405; J3490; J7050; U0002

== ENCOUNTER 2020-07-17 12:53 | Outpatient (CLI) | payer BC ==
--- NOTE | 2020-07-17 14:01 | RAD ---
XR Chest Pa Lat STANDARD HISTORY: Other vital pneumonia COMPARISON: 05/26/2020 FINDINGS: The heart size is normal. The lungs are well expanded without focal areas of consolidation, pneumothorax or pleural effusions. There are degenerative changes in the spine. IMPRESSION: No radiographic evidence of acute cardiopulmonary process.
== END 2020-07-17 12:54 | disposition home or self-care (01) ==
LOC: BICRAD 12:53
PROVIDERS: ATTEND Internal Medicine
DX: J12.89 Other viral pneumonia (principal)
CPT/HCPCS: 71046

== ENCOUNTER 2021-01-08 10:34 | Outpatient (CLI) | payer BC | END 2021-01-08 10:35 | disposition home or self-care (01) | LOC: BICMAMMO 10:34 | PROVIDERS: ATTEND Internal Medicine | DX: Z12.31 Encounter for screening mammogram for malignant neoplasm of breast (principal) | CPT/HCPCS: 77063; 77067 ==

== ENCOUNTER 2022-04-29 13:23 | Outpatient (CLI) | payer BC | END 2022-04-29 13:24 | disposition home or self-care (01) | LOC: BICMAMMO 13:23 | PROVIDERS: ATTEND Nurse Practitioner Family | DX: Z12.31 Encounter for screening mammogram for malignant neoplasm of breast (principal) | CPT/HCPCS: 77063; 77067 ==

== ENCOUNTER 2023-02-15 18:16 | Emergency (ER) | payer BC ==
[~2023-02-15 18:16] MED LIST: Iopamidol-370 76% 500 ML MDV (1 ML CHARGE) ONE
[2023-02-15 19:18] LABS: #Eosinphils 0.1 thou/uL (0.0-0.7); #Lymphocytes 1.6 thou/uL (1.20-3.40); #Monocytes 0.6 thou/uL (0.11-0.59); #Neutrophils 10.1 thou/uL (1.40-6.50); %Basophils 0.2 % (0.0-1.0); %Eosinophils 0.9 % (0.0-10.0); %Lymphocytes 12.4 % (21.0-51.0); %Monocytes 4.9 % (0.0-10.0); %Neutrophils 81.6 % (42.0-75.0); Mean Corpuscular HGB CONC 32.4 g/dL (32.0-36.0); Mean Corpuscular Hemoglobin 29.9 pg (27.0-31.0); Mean Corpuscular Volume 92.3 fl (78.0-98.0); Platelet Count 159 10x3/uL (130-400); RBC Distribution Width 11.7 % (11.5-14.5); Red Blood Cell (RBC) Count 4.35 mill/uL (4.20-5.40); White Blood Cell (WBC) Count 12.4 10x3/uL (4.8-10.8)
[2023-02-15 19:44] LABS: ALT (SGPT) 13 U/L (8-55); AST (SGOT) 16 U/L (5-34); Albumin 3.7 g/dL (3.5-5.0); Alkaline Phosphatase 110 U/L (40-110); Anion Gap 15 mmol/L (10-20); BUN (Urea Nitrogen) 14 mg/dL (9.8-20.1); Bilirubin, Total 0.4 mg/dL (0.2-1.2); Calc. Creatinine Clearance 0 mL/min (70-130); Calcium 9.1 mg/dL (7.8-10.44); Carbon Dioxide 22 mmol/L (22-29); Chloride 105 mmol/L (98-107); Estimated GFR 90; Globulin 3.1 g/dL (2.4-3.5); Glucose 167 mg/dL (70-105); Lipase 32 U/L (8-78); Potassium 3.9 mmol/L (3.5-5.1); Protein, Total 6.8 g/dL (6.0-8.3); Sodium 138 mmol/L (136-145)
[2023-02-15] MEDS ORDERED: cefTRIAXone (ROCEPHIN) 2 GM VIAL ONE ×2 (19:51→19:57)
[2023-02-15] MEDS ORDERED: Morphine 2 MG/ML VIAL ONE (19:51)
[2023-02-15] MEDS ORDERED: Ondansetron PF 4 MG/2 ML Vial ONE ×2 (19:51→19:57)
[2023-02-15] MEDS ORDERED: Morphine 4 MG/ML VIAL ONE (19:57)
[2023-02-15 21:50] LABS: Bacteria/HPF None Seen HPF (None Seen); Bilirubin Negative (Negative); Blood, Urine 3+ (Negative); Clarity Clear (Clear); Glucose, Urine (Dipstick) Normal (Negative); Ketone, Urine Negative (Negative); Leukocyte 500 Leu/uL (Negative); Nitrite Negative (Negative); Protein, Urine (Dipstick) Negative (Neg-Trace); Specific Gravity, Urine 1.017 (1.002-1.036); Squamous Epithelial 0-3 HPF (0-3); Urobilinogen Normal mg/dL (Less than 2); WBC/HPF Greater than 50 HPF (0-3); pH, Urine 7.5 (5.0-9.0)
[2023-02-15 22:32] LABS: Lactic Acid 1.3 mmol/L (0.5-2.2)
== END 2023-02-15 22:43 | disposition home or self-care (01) ==
LOC: ERS 18:16
DX: N12 Tubulo-interstitial nephritis, not specified as acute or chronic (principal); D72.829 Elevated white blood cell count, unspecified; E11.9 Type 2 diabetes mellitus without complications; E78.5 Hyperlipidemia, unspecified; I10 Essential (primary) hypertension; Z79.84 Long term (current) use of oral hypoglycemic drugs
CPT/HCPCS: 36415; 74177; 80053; 81003; 81015; 83605; 83690; 85025; 87040; 87086; 96374; 96375; J0696; J2270; J2272; J2405; Q9967

== ENCOUNTER 2023-06-21 14:36 | Outpatient (CLI) | payer BC, OTHER | END 2023-06-21 14:37 | disposition home or self-care (01) | LOC: BICMAMMO 14:36 | PROVIDERS: ATTEND Nurse Practitioner Family | DX: Z12.31 Encounter for screening mammogram for malignant neoplasm of breast (principal) | CPT/HCPCS: 77063; 77067 ==

== ENCOUNTER 2023-12-26 22:07 | Emergency (ER) | payer BC, OTHER ==
[2023-12-26 22:44] LABS: #Basophils 0.1 thou/uL (0.0-0.2); #Eosinphils 0.3 thou/uL (0.0-0.7); #Monocytes 0.6 thou/uL (0.11-0.59); #Neutrophils 4.5 thou/uL (1.40-6.50); %Basophils 0.7 % (0.0-1.0); %Lymphocytes 38.4 % (21.0-51.0); %Monocytes 6.8 % (0.0-10.0); Hematocrit 38.6 % (36.0-47.0); Hemoglobin 13.1 g/dL (12.0-16.0); Mean Corpuscular HGB CONC 33.9 g/dL (32.0-36.0); Mean Corpuscular Hemoglobin 30.9 pg (27.0-31.0); Mean Platelet Volume 12.8 fL (7.4-10.4); Platelet Count 173 10x3/uL (130-400); RBC Distribution Width 12.3 % (11.5-14.5); Red Blood Cell (RBC) Count 4.24 mill/uL (4.20-5.40); White Blood Cell (WBC) Count 8.9 10x3/uL (4.8-10.8)
[2023-12-26 23:08] LABS: ALT (SGPT) 16 U/L (8-55); AST (SGOT) 18 U/L (5-34); Albumin 3.8 g/dL (3.4-4.8); Alkaline Phosphatase 122 U/L (40-110); Anion Gap 12 mmol/L (10-20); BUN (Urea Nitrogen) 16 mg/dL (9.8-20.1); Bilirubin, Total 0.4 mg/dL (0.2-1.2); Calc. Creatinine Clearance 0 mL/min (70-130); Calcium 9.1 mg/dL (7.8-10.44); Carbon Dioxide 21 mmol/L (23-31); Chloride 107 mmol/L (98-107); Estimated GFR 76; Globulin 2.8 g/dL (2.4-3.5); Glucose 235 mg/dL (80-115); Lipase 59 U/L (8-78); Potassium 4.2 mmol/L (3.5-5.1); Protein, Total 6.6 g/dL (5.8-8.1); Sodium 136 mmol/L (136-145)
[2023-12-26 23:37] LABS: SARS-CoV-2 NAA Rapid Test Not Detected (NotDetected)
[2023-12-27 01:46] LABS: Troponin I Less than 0.010 ng/mL (< 0.028)
[2023-12-27 02:10] LABS: Bacteria/HPF None Seen HPF (None Seen); Bilirubin Negative (Negative); Blood, Urine Negative (Negative); CAUTI Indications for Culture Pelvic or flank pain; Clarity Turbid (Clear); Glucose, Urine (Dipstick) 70 mg/dL (Negative); Ketone, Urine Negative (Negative); Leukocyte 500 Leu/uL (Negative); Mucous/LPF Rare LPF (<2+); Nitrite Negative (Negative); Protein, Urine (Dipstick) 20 mg/dL (Neg-Trace); Renal Epithelial 0-3 HPF (None Seen); Specific Gravity, Urine 1.035 (1.002-1.036); WBC/HPF Greater than 50 HPF (0-3); pH, Urine 5.5 (5.0-9.0)
[2023-12-27 02:30] LABS: Urine Culture Reflex Yes Yes
== END 2023-12-27 03:46 | disposition home or self-care (01) ==
LOC: ERS 22:07
DX: N39.0 Urinary tract infection, site not specified (principal); R51.9 Headache, unspecified; I10 Essential (primary) hypertension; E78.5 Hyperlipidemia, unspecified; E11.9 Type 2 diabetes mellitus without complications; Z79.84 Long term (current) use of oral hypoglycemic drugs; Z79.899 Other long term (current) drug therapy
CPT/HCPCS: 36415; 70450; 80053; 81001; 83690; 84484; 85025; 87086; 93005

== ENCOUNTER 2024-09-11 14:34 | Outpatient (CLI) | payer BC | END 2024-09-11 14:35 | disposition home or self-care (01) | LOC: BICMAMMO 14:34 | PROVIDERS: ATTEND Nurse Practitioner Family | DX: Z12.31 Encounter for screening mammogram for malignant neoplasm of breast (principal) | CPT/HCPCS: 77063; 77067 ==

== ENCOUNTER 2024-11-28 15:57 | Outpatient (CLI) | payer BC | END 2024-11-28 15:58 | disposition home or self-care (01) | LOC: BICRAD 15:57 | PROVIDERS: ATTEND Nurse Practitioner Family | DX: M25.532 Pain in left wrist (principal) ==

== ENCOUNTER 2025-06-06 22:08 | Emergency (ER) | payer BC ==
[2025-06-06 22:39] LABS: #Basophils 0.04 10x3/uL (0.0-0.2); #Eosinophils 0.30 10x3/uL (0.0-0.7); #Monocytes 0.56 10x3/uL (0.11-0.59); #Neutrophils 3.56 10x3/uL (1.40-6.50); %Basophils 0.6 % (0.0-1.0); %Eosinophils 4.2 % (0.0-10.0); %Lymphocytes 37.3 % (21.0-51.0); %Monocytes 7.8 % (0.0-10.0); %Neutrophils 49.8 % (42.0-75.0); Hematocrit 39.4 % (36.0-47.0); Hemoglobin 13.0 g/dL (12.0-16.0); Mean Corpuscular Hemoglobin 30.6 pg (27.0-31.0); Mean Corpuscular Volume 92.7 fL (78.0-98.0); Platelet Count 138 10x3/uL (130-400); Red Blood Cell (RBC) Count 4.25 mill/uL (4.20-5.40); White Blood Cell (WBC) Count 7.14 10x3/uL (4.8-10.8)
[2025-06-06 22:50] LABS: CAUTI Indications for Culture Dysuria,urgency,freq; Glucose, Urine (Dipstick) Normal (Negative); Leukocyte 250 Leu/uL (Negative); Protein, Urine (Dipstick) Negative (Neg-Trace); RBC/HPF None Seen HPF (0-3); Specific Gravity, Urine 1.007 (1.002-1.036); WBC/HPF 0-3 HPF (0-3)
[2025-06-06 22:56] LABS: Bacteria/HPF 1+ HPF (None Seen)
[2025-06-06 22:57] LABS: ALT (SGPT) 14 U/L (Less than 34); AST (SGOT) 26 U/L (11-34); Albumin 3.7 g/dL (3.1-4.5); Alkaline Phosphatase 127 U/L (40-110); Anion Gap 11 mmol/L (10-20); BUN (Urea Nitrogen) 14 mg/dL (9.8-20.1); Bilirubin, Total 0.4 mg/dL (0.3-1.2); Calc. Creatinine Clearance 0 mL/min (70-130); Calcium 8.7 mg/dL (7.8-10.44); Carbon Dioxide 22 mmol/L (23-31); Chloride 108 mmol/L (98-107); Globulin 3.1 g/dL (2.4-3.5); Glucose 137 mg/dL (80-115); Lipase 34 U/L (8-78); Potassium 4.4 mmol/L (3.5-5.1); Sodium 137 mmol/L (136-145)
[2025-06-06 22:57] LABS: Urine Culture Reflex No No
[2025-06-06 23:04] LABS: Troponin I 0.015 ng/mL (< 0.028)
[2025-06-07] MEDS ORDERED: Acetaminophen 325 MG TAB ONE (01:54)
[2025-06-07] MEDS ORDERED: diphenhydrAMINE 25 MG CAP ONE (01:54)
== END 2025-06-07 02:07 | disposition home or self-care (01) ==
LOC: ERS 22:08
DX: R51.9 Headache, unspecified (principal); N39.0 Urinary tract infection, site not specified; E11.42 Type 2 diabetes mellitus with diabetic polyneuropathy; I10 Essential (primary) hypertension; E78.5 Hyperlipidemia, unspecified; Z79.84 Long term (current) use of oral hypoglycemic drugs; Z79.899 Other long term (current) drug therapy
CPT/HCPCS: 36415; 71045; 80053; 81001; 83690; 84484; 85025; 93005

== ENCOUNTER 2025-10-02 15:11 | Outpatient (CLI) | payer BC | END 2025-10-02 15:12 | disposition home or self-care (01) | LOC: BICMAMMO 15:11 | PROVIDERS: ATTEND Nurse Practitioner Family | DX: Z12.31 Encounter for screening mammogram for malignant neoplasm of breast (principal) | CPT/HCPCS: 77063; 77067 ==